=== PATIENT | female | born 1985 | race Caucasian/White ===

== ENCOUNTER 2022-07-12 00:50 | Inpatient (IN) | payer MEDICAID ==
[~2022-07-12] VITALS: Ht 162.6 cm; Wt 75.9 kg
[2022-07-12] VITALS (33 sets, daily range): BP systolic 97–1113; BP diastolic 54–80; PULSE 67–99; TEMP 97.8–99.7
[2022-07-12] MEDS ORDERED: PRENATAL TABLET PO (01:31)
[2022-07-12 04:32] LABS: BASO % 0.3 % (0.0-2.0); EOS # 0.2 K/mm3 (0.0-0.7); EOS % 1.8 % (0.0-4.0); GRAN # 6.9 K/mm3 (1.4-6.5); GRAN % 74.8 % (42.2-75.2); HEMATOCRIT 41.3 % (37.0-47.0); LYMPH # 1.3 K/mm3 (1.2-3.4); LYMPH % 14.3 % (20.0-51.0); MEAN CELL VOLUME 92 fl (80.0-100.0); MEAN CORPUSCULAR HEMOGLOBIN 31 pg (27-31); MEAN CORPUSCULAR HGB CONC 34 g/dl (33.0-37.0); MEAN PLATELET VOLUME 11.5 fl (7.4-10.4); MONO # 0.8 K/mm3 (0.1-0.6); MONO % 8.5 % (1.7-9.3); PLATELET COUNT 193 K/mm3 (130-400); RED BLOOD COUNT 4.49 M/mm3 (4.10-5.30); REDCELL DISTRIBUTION WIDTH-CV 12.9 % (11.5-14.5)
[2022-07-13 08:00] VITALS: BP 100/62; PULSE 77; TEMP 98
[2022-07-13] MEDS ORDERED: IBU600 MG PO (10:21)
== END 2022-07-13 12:00 | disposition home or self-care (01) | DRG 807 ==
LOC: LDRO 00:50 → LDR 02:54 → OB 13:25
PROVIDERS: ADMIT Obstetrics & Gynecology
PROC: 10E0XZZ Delivery of Products of Conception, External Approach (ICD-10-PCS; principal; 2022-07-12)
DX: O24.420 Gestational diabetes mellitus in childbirth, diet controlled (principal); Z37.0 Single live birth; O48.0 Post-term pregnancy; O99.344 Other mental disorders complicating childbirth; O69.81X0 Labor and delivery complicated by cord around neck, without compression, not applicable or unspecified; F41.9 Anxiety disorder, unspecified; Z91.040 Latex allergy status; Z88.8 Allergy status to other drugs, medicaments and biological substances; Z91.018 Allergy to other foods; Z3A.40 40 weeks gestation of pregnancy
CPT/HCPCS: J2590; J7120